=== PATIENT | female | born 1940 | race Caucasian/White ===

== ENCOUNTER 2021-07-30 07:27 | Outpatient (REF) | payer SELFPAY ==
[2021-07-30 09:24] LABS: Abs Immature Grans 0.02 10^3/uL (0.0-0.06); Absolute Basophil Count 0.04 10^3/uL (0.0-0.2); Absolute Eosinophil Count 0.13 10^3/uL (0.0-0.7); Absolute Lymphocyte Count 1.57 10^3/uL (1.2-3.4); Absolute Monocyte Count 0.65 10^3/uL (0.1-0.8); Absolute Neutrophil Count 3.53 10^3/uL (1.2-6.7); Basophils % 0.7; Eosinophils % 2.2; HCT 34.6 % (36.0-46.0); HGB 11.1 g/dL (11.2-15.7); Immature Grans % 0.3; Lymphocytes % 26.4; MCH 34.5 pg (27.0-33.0); MCHC 32.1 % (32.0-36.0); MCV 107.5 fL (80-95); MPV 8.7 fL (8.0-11.0); Monocytes % 10.9; Neutrophils % 59.5; Nucleated RBC 0 %; RBC 3.22 10^6/uL (3.93-5.22); RDW 14.6 % (11.7-14.6); RDW-SD 57.1 fL; WBC 5.94 10^3/uL (4.4-10.8)
[2021-07-30 09:25] LABS: Anion Gap 2.1 mmol/L (3-11); BUN 24 mg/dL (7-18); CO2 32.9 mmol/L (21.0-32.0); CREATININE 0.4 mg/dL (0.55-1.02); Calcium 8.1 mg/dL (8.5-10.1); Chloride 105 mmol/L (98-107); Glucose 70 mg/dL (74-106); Potassium 4.9 mmol/L (3.5-5.1); Sodium 140 mmol/L (136-145)
[2021-07-30 09:36] LABS: Diff Comment Diff Reviewed; Macrocytosis 2+; Platelet Count 378 10^3/uL (130-400); Polychromasia Present
[2021-07-30 22:44] LABS: Folate 14.1 ng/mL (8.6-20.0); Vitamin B12 1042 pg/mL (193-986)
== END 2021-07-30 07:28 | disposition home or self-care (01) ==
LOC: LBN 07:27
PROVIDERS: Visit Provider Family Medicine
DX: E87.1 Hypo-osmolality and hyponatremia (principal); N39.0 Urinary tract infection, site not specified; A79.82 Anaplasmosis [A. phagocytophilum]
CPT/HCPCS: 80048; 82607; 82746; 85025

== ENCOUNTER 2021-08-06 11:13 | Outpatient (REF) | payer SELFPAY ==
[2021-08-06 18:39] LABS: Anion Gap 4.8 mmol/L (3-11); BUN 19 mg/dL (7-18); CO2 32.2 mmol/L (21.0-32.0); CREATININE 0.5 mg/dL (0.55-1.02); Calcium 8.4 mg/dL (8.5-10.1); Chloride 105 mmol/L (98-107); Glucose 147 mg/dL (74-106); Potassium 4.2 mmol/L (3.5-5.1); Sodium 142 mmol/L (136-145)
== END 2021-08-06 11:14 | disposition home or self-care (01) ==
LOC: LBN 11:13
PROVIDERS: Visit Provider Family Medicine
DX: E87.1 Hypo-osmolality and hyponatremia (principal)
CPT/HCPCS: 80048

== ENCOUNTER 2021-08-08 17:29 | Outpatient (REF) | payer SELFPAY ==
[2021-08-08 14:59] LABS: Bilirubin Negative (Negative); Blood Negative (Negative); Clarity Sl Cloudy (Clear); Glucose Negative (Negative); Ketones Negative (Negative); Leukocyte Esterase Negative (Negative); Nitrite Positive (Negative); Specific Gravity 1.025 (1.005-1.025); Urobilinogen 0.2 EU/dL (Up TO 0.2)
[2021-08-08 15:19] LABS: Bacteria Packed HPF (Negative); C & S Indicated? C&S Done As Ordered; Crystals Negative HPF (Negative); Epithelial Cells Few HPF (Negative); Mucus Negative (Negative); RBC Negative HPF (0-2)
== END 2021-08-08 17:30 | disposition home or self-care (01) ==
LOC: LBN 17:29
PROVIDERS: Visit Provider Family Medicine
DX: R41.82 Altered mental status, unspecified (principal)
CPT/HCPCS: 87077; 81003; 81015; 87086; 87186

== ENCOUNTER 2021-08-13 19:43 | Outpatient (REF) | payer SELFPAY ==
[2021-08-13 18:41] LABS: Anion Gap 9.6 mmol/L (3-11); BUN 25 mg/dL (7-18); CO2 28.4 mmol/L (21.0-32.0); CREATININE 0.5 mg/dL (0.55-1.02); Calcium 8.3 mg/dL (8.5-10.1); Chloride 107 mmol/L (98-107); Folate 18.3 ng/mL (8.6-20.0); Glucose 175 mg/dL (74-106); Sodium 145 mmol/L (136-145); Vitamin B12 588 pg/mL (193-986)
== END 2021-08-13 19:44 | disposition home or self-care (01) ==
LOC: LBN 19:43
PROVIDERS: Visit Provider Family Medicine
DX: E87.1 Hypo-osmolality and hyponatremia (principal)
CPT/HCPCS: 80048; 82607; 82746

== ENCOUNTER 2021-08-16 14:21 | Outpatient (REF) | payer SELFPAY ==
[2021-08-16 19:27] LABS: ESR 11 mm/hr (0-30)
[2021-08-16 19:28] LABS: ALT 40 U/L (14-59); AST 23 U/L (15-37); Albumin 2.9 g/dL (3.4-5.0); Alkaline Phosphatase 104 U/L (46-116); Anion Gap 6.3 mmol/L (3-11); BUN 22 mg/dL (7-18); Bilirubin, Total 0.3 mg/dL (0.2-1.0); CO2 30.7 mmol/L (21.0-32.0); CREATININE 0.4 mg/dL (0.55-1.02); Calcium 8.4 mg/dL (8.5-10.1); Chloride 109 mmol/L (98-107); Glucose 111 mg/dL (74-106); Potassium 4.1 mmol/L (3.5-5.1); Sodium 146 mmol/L (136-145); Total Protein 5.8 g/dL (6.4-8.2)
[2021-08-16 19:29] LABS: Bilirubin Negative (Negative); Blood Negative (Negative); Clarity Clear (Clear); Glucose Negative (Negative); Ketones Negative (Negative); Leukocyte Esterase Negative (Negative); Nitrite Negative (Negative); Specific Gravity >= 1.030 (1.005-1.025); Urobilinogen 0.2 EU/dL (Up TO 0.2)
[2021-08-16 19:33] LABS: C-Reactive Protein < 0.05 mg/dL (0.0-0.3)
[2021-08-19 10:56] LABS: Lyme Ab w Rflx to Lyme Confirm Negative (Negative)
[2021-08-19 11:00] LABS: Syphilis Serology (RPR) Negative (Negative)
== END 2021-08-16 14:22 | disposition home or self-care (01) ==
LOC: LBN 14:21
PROVIDERS: Visit Provider Family Medicine
DX: R41.82 Altered mental status, unspecified (principal); R82.998 Other abnormal findings in urine; E87.1 Hypo-osmolality and hyponatremia
CPT/HCPCS: 80053; 85652; 81003; 86140; 86592; 86618

== ENCOUNTER 2021-08-22 13:23 | Outpatient (REF) | payer SELFPAY ==
[2021-08-22 15:16] LABS: Anion Gap 4.9 mmol/L (3-11); BUN 21 mg/dL (7-18); CO2 31.1 mmol/L (21.0-32.0); CREATININE 0.4 mg/dL (0.55-1.02); Calcium 8.4 mg/dL (8.5-10.1); Chloride 104 mmol/L (98-107); Folate 18.4 ng/mL (8.6-20.0); Glucose 79 mg/dL (74-106); Potassium 4.8 mmol/L (3.5-5.1); Sodium 140 mmol/L (136-145)
[2021-08-22 16:04] LABS: Vitamin B12 592 pg/mL (193-986)
== END 2021-08-22 13:24 | disposition home or self-care (01) ==
LOC: LBN 13:23
PROVIDERS: Visit Provider Family Medicine
DX: E87.1 Hypo-osmolality and hyponatremia (principal)
CPT/HCPCS: 80048; 82607; 82746

== ENCOUNTER 2021-08-27 12:18 | Outpatient (REF) | payer SELFPAY ==
--- OUTSIDE RECORDS SUMMARY | 2021-08-27 12:26 | XMS_ITS ---
:1940 Author Care Team Providers Name Role Phone DR. ROE HADDAD Primary Care Provider [phone] DR. ROE HADDAD Referring Provider [phone] ROE HADDAD MD Primary Care Provider [phone] Allergies Code Code System Name Reaction Severity Status Onset 538717 RxNorm Demerol ? ? Active ? 784906 RxNorm Fosamax ? ? Active ? 347438 RxNorm Miacalcin ? ? Active ? 7052 RxNorm Morphine ? ? Active ? 7984 RxNorm Penicillin v ? ? Active ? 9142 RxNorm Ranitidine ? ? Active ? 20240308 RxNorm Valium ? ? Active ? Medications Name Status Start Date Stop Date ? ? albuterol sulfate HFA 90 mcg/actuation aerosol inhaler Active ? Not available Inhale 2 puffs every 4 hours by inhalation route as needed. aspirin 81 mg tablet Active ? Not availab le Take 1 tablet every day by oral route. Coumadin 2 mg tablet Active ? Not availab le Take 2 tablets every day by oral route. glycerin (adult) rectal suppository Active ? Not available Insert 1 suppository by rectal route as needed. mirabegron ER 50 mg tablet,extended release 24 hr Active ? Not available Take 1 tablet every day by oral route. senna-docusate sodium 8.6 mg-50 mg tablet Active ? Not available Take 3 tablets as needed by oral route in the evening. Vitamin B-12 1,000 mcg tablet Active ? N ot available Take 1 tablet every day by oral route. Vitamin C 1,000 mg chewable tablet Active ? Not available Take 1 tablet twice a day by oral route. Problems Name Status Onset Date Source ? Disorder of Vitamin B12 Active 04/11/2021 ? Anxiety Active 04/11/2021 ? Tobacco User Active 04/11/2021 ? Chronic Pain Active 04/11/2021 ? Neuropathy Active 04/11/2021 ? Gastroesophageal Reflux Disease Active 04/11/2021 ? Constipation Active 04/11/2021 ? Urinary Tract Infectious Disease Active 04/11/2021 ? Osteoarthritis Active 04/11/2021 ? Neck Pain Active 04/11/2021 ? Osteopenia Active 04/11/2021 ? Macrocytosis Active 04/11/2021 ? Onychomycosis of Toenails Active 04/17/2021 ? Ingrowing Toenail Active 04/17/2021 ? Dystrophia Unguium Active 04/17/2021 ? Abnormal Gait Due to Impairment of Balance Active 04/17 ? Pain of Toe of Right Foot Active 04/17/2021 ? Pain of Toe of Left Foot Active 04/17/2021 ? Bilateral Atherosclerosis of Arteries of Active 021 ? Lower Limbs Procedures None recorded. Results Lab Results None recorded. Past Encounters 04/17/2021 Onychomycosis of Toenails; Dystrophia Un guium; Ingrowing Toenail; Bilateral Atherosclerosis of Arteries of Lower Limbs; Pain of Toe of Left Foot; Pain of Toe of Right Foot; Abnormal Gait Due to Impairment of Balance Jordan Ross, DPM: [address] [place] [address], Ph. Social History None recorded. Vaccine List None recorded. Plan of Care Reminders Provider Appointments None ? ? recorded. Lab None ? ? recorded. Referral None ? ? recorded. Procedures None ? ? recorded. Surgeries None ? ? recorded. Imaging None ? ? recorded. Vitals None recorded.
[2021-08-27 16:14] LABS: Anion Gap 2.9 mmol/L (3-11); BUN 23 mg/dL (7-18); CO2 33.1 mmol/L (21.0-32.0); CREATININE 0.5 mg/dL (0.55-1.02); Calcium 8.9 mg/dL (8.5-10.1); Chloride 105 mmol/L (98-107); Glucose 131 mg/dL (74-106); Potassium 5.3 mmol/L (3.5-5.1); Sodium 141 mmol/L (136-145)
== END 2021-08-27 12:19 | disposition home or self-care (01) ==
LOC: LBN 12:18
PROVIDERS: Visit Provider Family Medicine
DX: E87.1 Hypo-osmolality and hyponatremia (principal)
CPT/HCPCS: 80048

== ENCOUNTER 2021-09-03 16:17 | Outpatient (REF) | payer SELFPAY ==
[2021-09-03 17:44] LABS: Anion Gap 6.1 mmol/L (3-11); BUN 23 mg/dL (7-18); CO2 30.9 mmol/L (21.0-32.0); CREATININE 0.4 mg/dL (0.55-1.02); Calcium 8.7 mg/dL (8.5-10.1); Chloride 103 mmol/L (98-107); Glucose 110 mg/dL (74-106); Potassium 4.8 mmol/L (3.5-5.1); Sodium 140 mmol/L (136-145)
== END 2021-09-03 16:18 | disposition home or self-care (01) ==
LOC: LBN 16:17
PROVIDERS: Visit Provider Family Medicine
DX: E87.0 Hyperosmolality and hypernatremia (principal)
CPT/HCPCS: 80048

== ENCOUNTER 2021-09-10 17:28 | Outpatient (REF) | payer MEDICARE, OTHER, SELFPAY ==
[2021-09-10 20:15] LABS: Anion Gap 6.1 mmol/L (3-11); BUN 26 mg/dL (7-18); CO2 30.9 mmol/L (21.0-32.0); CREATININE 0.4 mg/dL (0.55-1.02); Calcium 8.7 mg/dL (8.5-10.1); Chloride 107 mmol/L (98-107); Glucose 84 mg/dL (74-106); Potassium 4.7 mmol/L (3.5-5.1); Sodium 144 mmol/L (136-145); Vitamin B12 442 pg/mL (193-986)
[2021-09-10 20:16] LABS: Folate > 20.0 ng/mL (8.6-20.0)
== END 2021-09-10 17:29 | disposition home or self-care (01) ==
LOC: LBN 17:28
PROVIDERS: Visit Provider Family Medicine
DX: J90 Pleural effusion, not elsewhere classified (principal); I82.593 Chronic embolism and thrombosis of other specified deep vein of lower extremity, bilateral
CPT/HCPCS: 80048; 82607; 82746

== ENCOUNTER 2021-09-17 15:50 | Outpatient (REF) | payer MEDICARE, OTHER, SELFPAY ==
[2021-09-17 17:05] LABS: Anion Gap 6.5 mmol/L (3-11); BUN 23 mg/dL (7-18); CO2 30.5 mmol/L (21.0-32.0); CREATININE 0.5 mg/dL (0.55-1.02); Calcium 8.5 mg/dL (8.5-10.1); Chloride 101 mmol/L (98-107); Glucose 129 mg/dL (74-106); Potassium 4.5 mmol/L (3.5-5.1); Sodium 138 mmol/L (136-145)
== END 2021-09-17 15:51 | disposition home or self-care (01) ==
LOC: LBN 15:50
PROVIDERS: Visit Provider Family Medicine
DX: E87.1 Hypo-osmolality and hyponatremia (principal)
CPT/HCPCS: 80048

== ENCOUNTER 2021-10-03 22:16 | Outpatient (REF) | payer MEDICARE, OTHER, SELFPAY ==
[2021-10-03 22:26] LABS: Abs Immature Grans 0.02 10^3/uL (0.0-0.06); Absolute Basophil Count 0.03 10^3/uL (0.0-0.2); Absolute Eosinophil Count 0.18 10^3/uL (0.0-0.7); Absolute Lymphocyte Count 1.73 10^3/uL (1.2-3.4); Absolute Monocyte Count 0.62 10^3/uL (0.1-0.8); Absolute Neutrophil Count 3.82 10^3/uL (1.2-6.7); Basophils % 0.5; Eosinophils % 2.8; HCT 40.5 % (36.0-46.0); HGB 12.8 g/dL (11.2-15.7); Immature Grans % 0.3; MCHC 31.6 % (32.0-36.0); MCV 107.4 fL (80-95); MPV 8.9 fL (8.0-11.0); Monocytes % 9.7; Neutrophils % 59.7; Nucleated RBC 0 %; Platelet Count 259 10^3/uL (130-400); RBC 3.77 10^6/uL (3.93-5.22); RDW 13.6 % (11.7-14.6); RDW-SD 54.8 fL
[2021-10-03 22:37] LABS: Anion Gap 5.6 mmol/L (3-11); BUN 32 mg/dL (7-18); CO2 31.4 mmol/L (21.0-32.0); CREATININE 0.4 mg/dL (0.55-1.02); Calcium 8.6 mg/dL (8.5-10.1); Chloride 105 mmol/L (98-107); Glucose 102 mg/dL (74-106); Potassium 4.3 mmol/L (3.5-5.1); Sodium 142 mmol/L (136-145)
[2021-10-03 22:38] LABS: Diff Comment RBC Morph Reviewed; Macrocytosis 3+
== END 2021-10-03 22:17 | disposition home or self-care (01) ==
LOC: LBN 22:16
PROVIDERS: Visit Provider Family Medicine
DX: E87.1 Hypo-osmolality and hyponatremia (principal); I82.593 Chronic embolism and thrombosis of other specified deep vein of lower extremity, bilateral
CPT/HCPCS: 80048; 85025

== ENCOUNTER 2021-10-07 18:08 | Outpatient (REF) | payer MEDICARE, OTHER, SELFPAY ==
[2021-10-07 19:37] LABS: Bilirubin Negative (Negative); Blood Negative (Negative); Clarity Clear (Clear); Glucose Negative (Negative); Ketones Negative (Negative); Leukocyte Esterase Negative (Negative); Nitrite Positive (Negative); Specific Gravity >= 1.030 (1.005-1.025); Urobilinogen 0.2 EU/dL (Up TO 0.2)
[2021-10-07 19:50] LABS: C & S Indicated? C&S Done As Ordered
[2021-10-07 19:54] LABS: Bacteria Many HPF (Negative); Casts Negative LPF (Negative); Crystals Negative HPF (Negative); Epithelial Cells Negative HPF (Negative); Mucus Negative (Negative); Other Cells Negative (Negative); RBC Negative HPF (0-2)
== END 2021-10-07 18:09 | disposition home or self-care (01) ==
LOC: LBN 18:08
PROVIDERS: Visit Provider Family Medicine
DX: N39.0 Urinary tract infection, site not specified (principal)
CPT/HCPCS: 81003; 81015; 87086

== ENCOUNTER 2021-10-08 17:13 | Outpatient (REF) | payer MEDICARE, OTHER, SELFPAY ==
[2021-10-08 18:29] LABS: Anion Gap 7.3 mmol/L (3-11); BUN 28 mg/dL (7-18); CO2 29.7 mmol/L (21.0-32.0); CREATININE 0.5 mg/dL (0.55-1.02); Calcium 8.9 mg/dL (8.5-10.1); Chloride 104 mmol/L (98-107); Folate 19.1 ng/mL (8.6-20.0); Glucose 133 mg/dL (74-106); Potassium 4.5 mmol/L (3.5-5.1); Sodium 141 mmol/L (136-145); Vitamin B12 477 pg/mL (193-986)
== END 2021-10-08 17:14 | disposition home or self-care (01) ==
LOC: LBN 17:13
PROVIDERS: Visit Provider Nurse Practitioner Family
DX: E87.8 Other disorders of electrolyte and fluid balance, not elsewhere classified (principal)
CPT/HCPCS: 80048; 82607; 82746

== ENCOUNTER 2021-10-18 14:02 | Outpatient (REF) | payer MEDICARE, OTHER, SELFPAY ==
[2021-10-18 13:55] LABS: Abs Immature Grans 0.05 10^3/uL (0.0-0.06); Absolute Basophil Count 0.07 10^3/uL (0.0-0.2); Absolute Lymphocyte Count 1.63 10^3/uL (1.2-3.4); Absolute Monocyte Count 0.78 10^3/uL (0.1-0.8); Absolute Neutrophil Count 6.35 10^3/uL (1.2-6.7); Basophils % 0.8; Eosinophils % 1.1; HCT 42.8 % (36.0-46.0); HGB 13.6 g/dL (11.2-15.7); Immature Grans % 0.6; Lymphocytes % 18.2; MCH 33.8 pg (27.0-33.0); MCHC 31.8 % (32.0-36.0); MCV 106.5 fL (80-95); MPV 9.1 fL (8.0-11.0); Monocytes % 8.7; Neutrophils % 70.6; Nucleated RBC 0 %; Platelet Count 357 10^3/uL (130-400); RBC 4.02 10^6/uL (3.93-5.22); RDW-SD 51.7 fL; WBC 8.98 10^3/uL (4.4-10.8)
[2021-10-18 14:06] LABS: ALT 29 U/L (14-59); AST 19 U/L (15-37); Albumin 3.5 g/dL (3.4-5.0); Alkaline Phosphatase 90 U/L (46-116); BUN 24 mg/dL (7-18); Bilirubin, Total 0.3 mg/dL (0.2-1.0); CREATININE 0.4 mg/dL (0.55-1.02); Calcium 9.3 mg/dL (8.5-10.1); Chloride 103 mmol/L (98-107); Glucose 81 mg/dL (74-106); Potassium 4.9 mmol/L (3.5-5.1); Sodium 138 mmol/L (136-145); Total Protein 6.7 g/dL (6.4-8.2)
[2021-10-18 14:39] LABS: INR 1.6 (0.9-1.1); Prothrombin Time 16.2 sec (9.3-11.0)
== END 2021-10-18 14:03 | disposition home or self-care (01) ==
LOC: LBN 14:02
PROVIDERS: Visit Provider Nurse Practitioner Family
DX: E87.1 Hypo-osmolality and hyponatremia (principal); I48.91 Unspecified atrial fibrillation
CPT/HCPCS: 80053; 85025; 85610

== ENCOUNTER 2021-10-20 10:21 | Outpatient (REF) | payer MEDICARE, OTHER, SELFPAY ==
[2021-10-20 11:36] LABS: Prothrombin Time 21.2 sec (9.3-11.0)
[2021-10-20 11:39] LABS: INR 2.1 (0.9-1.1)
== END 2021-10-20 10:22 | disposition home or self-care (01) ==
LOC: LBN 10:21
PROVIDERS: Visit Provider Nurse Practitioner Family
DX: I82.593 Chronic embolism and thrombosis of other specified deep vein of lower extremity, bilateral (principal); E87.1 Hypo-osmolality and hyponatremia; R82.90 Unspecified abnormal findings in urine
CPT/HCPCS: 85610; 87086

== ENCOUNTER 2021-10-20 17:31 | Outpatient (REF) | payer MEDICARE, OTHER, SELFPAY | END 2021-10-20 17:32 | disposition home or self-care (01) | LOC: LBN 17:31 | PROVIDERS: Visit Provider Family Medicine ==

== ENCOUNTER 2021-10-22 10:57 | Outpatient (REF) | payer MEDICARE, OTHER, SELFPAY ==
[2021-10-22 11:38] LABS: INR 2.3 (0.9-1.1); Prothrombin Time 22.5 sec (9.3-11.0)
== END 2021-10-22 10:58 | disposition home or self-care (01) ==
LOC: LBN 10:57
PROVIDERS: Visit Provider Nurse Practitioner Family
DX: I48.91 Unspecified atrial fibrillation (principal)
CPT/HCPCS: 85610

== ENCOUNTER 2021-10-24 13:51 | Outpatient (REF) | payer MEDICARE, OTHER, SELFPAY ==
[2021-10-24 15:02] LABS: Prothrombin Time 29.1 sec (9.3-11.0)
== END 2021-10-24 13:52 | disposition home or self-care (01) ==
LOC: LBN 13:51
PROVIDERS: Visit Provider Nurse Practitioner Family
DX: I82.593 Chronic embolism and thrombosis of other specified deep vein of lower extremity, bilateral (principal)
CPT/HCPCS: 85610

== ENCOUNTER 2021-10-27 16:35 | Outpatient (REF) | payer MEDICARE, OTHER, SELFPAY ==
[2021-10-27 16:58] LABS: INR 2.7 (0.9-1.1); Prothrombin Time 26.4 sec (9.3-11.0)
== END 2021-10-27 16:36 | disposition home or self-care (01) ==
LOC: LBN 16:35
PROVIDERS: Visit Provider Nurse Practitioner Family
DX: I82.593 Chronic embolism and thrombosis of other specified deep vein of lower extremity, bilateral (principal)
CPT/HCPCS: 85610

== ENCOUNTER 2021-10-31 18:16 | Outpatient (REF) | payer MEDICARE, OTHER, SELFPAY ==
[2021-10-31 12:23] LABS: INR 1.1 (0.9-1.1); Prothrombin Time 11.5 sec (9.3-11.0)
[2021-10-31 12:29] LABS: Anion Gap 5.5 mmol/L (3-11); BUN 20 mg/dL (7-18); CO2 30.5 mmol/L (21.0-32.0); CREATININE 0.5 mg/dL (0.55-1.02); Chloride 104 mmol/L (98-107); Glucose 108 mg/dL (74-106); Potassium 4.3 mmol/L (3.5-5.1); Sodium 140 mmol/L (136-145)
== END 2021-10-31 18:17 | disposition home or self-care (01) ==
LOC: LBN 18:16
PROVIDERS: Visit Provider Nurse Practitioner Family
DX: I82.593 Chronic embolism and thrombosis of other specified deep vein of lower extremity, bilateral (principal)
CPT/HCPCS: 80048; 85610

== ENCOUNTER 2021-11-07 12:48 | Outpatient (REF) | payer MEDICARE, OTHER, SELFPAY ==
[2021-11-07 14:40] LABS: Anion Gap 5.3 mmol/L (3-11); BUN 21 mg/dL (7-18); CO2 30.7 mmol/L (21.0-32.0); CREATININE 0.5 mg/dL (0.55-1.02); Calcium 8.4 mg/dL (8.5-10.1); Chloride 106 mmol/L (98-107); Glucose 98 mg/dL (74-106); Potassium 3.8 mmol/L (3.5-5.1); Sodium 142 mmol/L (136-145); Vitamin B12 585 pg/mL (193-986)
[2021-11-07 14:41] LABS: Folate > 20.0 ng/mL (8.6-20.0)
== END 2021-11-07 12:49 | disposition home or self-care (01) ==
LOC: LBN 12:48
PROVIDERS: Visit Provider Nurse Practitioner Family
DX: E87.1 Hypo-osmolality and hyponatremia (principal); R53.1 Weakness; F03.91 Unspecified dementia, unspecified severity, with behavioral disturbance
CPT/HCPCS: 80048; 82607; 82746

== ENCOUNTER 2021-11-21 18:13 | Outpatient (REF) | payer MEDICARE, OTHER, SELFPAY ==
[2021-11-21 12:52] LABS: HCT 41.5 % (36.0-46.0); HGB 12.8 g/dL (11.2-15.7); MCH 32.8 pg (27.0-33.0); MCHC 30.8 % (32.0-36.0); MCV 106.4 fL (80-95); MPV 8.6 fL (8.0-11.0); Platelet Count 386 10^3/uL (130-400); RDW 13.1 % (11.7-14.6); RDW-SD 51.2 fL
[2021-11-21 12:58] LABS: Bilirubin Negative (Negative); Blood Negative (Negative); Clarity Cloudy (Clear); Glucose Negative (Negative); Ketones Negative (Negative); Leukocyte Esterase Negative (Negative); Nitrite Negative (Negative); Specific Gravity 1.025 (1.005-1.025); Urobilinogen 0.2 EU/dL (Up TO 0.2)
[2021-11-21 13:09] LABS: Bacteria Negative HPF (Negative); Epithelial Cells Few HPF (Negative); RBC 0-2 HPF (0-2); WBC 0-2 HPF (0-5)
[2021-11-21 13:10] LABS: C & S Indicated? No; Casts Negative LPF (Negative); Crystals Few Triple Phos HPF (Negative); Mucus Moderate (Negative)
[2021-11-21 13:23] LABS: Anion Gap 4.2 mmol/L (3-11); BUN 24 mg/dL (7-18); CO2 34.8 mmol/L (21.0-32.0); CREATININE 0.4 mg/dL (0.55-1.02); Calcium 8.8 mg/dL (8.5-10.1); Chloride 112 mmol/L (98-107); Glucose 104 mg/dL (74-106); Potassium 3.3 mmol/L (3.5-5.1); Sodium 151 mmol/L (136-145)
== END 2021-11-21 18:14 | disposition home or self-care (01) ==
LOC: LBN 18:13
PROVIDERS: Visit Provider Nurse Practitioner Family
DX: E87.1 Hypo-osmolality and hyponatremia (principal); F06.0 Psychotic disorder with hallucinations due to known physiological condition; N31.9 Neuromuscular dysfunction of bladder, unspecified
CPT/HCPCS: 80048; 85027; 81003; 81015

== ENCOUNTER 2021-11-24 10:24 | Emergency (ER) | payer MEDICARE, OTHER, SELFPAY ==
[2021-11-24] VITALS (36 sets, daily range): BP systolic 107–143; BP diastolic 52–86; PULSE 64–104; RESP 14–44; TEMP 36.5–37.6; O2SAT 84–95
--- NOTE | 2021-11-24 10:30 | DI.RAD_ITS ---
Exam(s) XR CHEST 1V IN DI DEPT EXAM: XR CHEST 1V IN DI DEPT CLINICAL HISTORY: ams. TECHNIQUE: 2D digital imaging was performed. COMPARISON: No exams were available for comparison FINDINGS: Single AP portable view. Scoliosis noted. Cardiomegaly. Platelike atelectasis in the right lung. There appears to be probab le bronchiectasis in left lower lobe is some infiltrate in left lower lobe evident. No obvious pleur al effusions. No pulmonary edema. IMPRESSION: Hip spaces for left lower lobe infiltrate possible bronchiectasis. No obvious pleural effusions. Cardiomegaly. No pulmonary edema. DATA REPOSITORY: RADIATION DOSE DELIVERED: All CT scans at this facility use at least one of these dose optimization techniques: automated exposure control; mA and/or kV adjustment per patient size (includes targeted e xams where dose is matched to clinical indication); or iterative reconstruction.
--- NOTE | 2021-11-24 10:30 | DI.CT_ITS ---
Exam(s) CT HEAD WO EXAM: CT HEAD WO CLINICAL HISTORY: ams. TECHNIQUE: Imaging Protocol: Axial computed tomography images with coronal and sagittal reformatted images were created and reviewed COMPARISON: No exams were available for comparison FINDINGS: There are no skull fractures nor fluid in the visualized paranasal sinuses. There is no evidence of intracranial hemorrhage, mass effect, or shift of midline structures. There are no extra-axial fluid collections. The ventricles are not enlarged or shifted and there is no blo od within the ventricular system nor within the basal cisterns. There is symmetrical involutional change consistent with patient's advanced age. There is some mild bilateral periventricular hypodensity consistent with chronic small vessel ischemic changes. IMPRESSION: No acute intracranial findings on this noninfused CT scan of the brain. Chronic white matter ischemic changes. No obvious acute territorial infarction and no evidence of in tracranial hemorrhage, intra nor extra-axial. RADIATION DOSE DELIVERED: 1,496.84mGy.cm Total DLP DATA REPOSITORY: All CT scans at this facility are submitted to the National Radiology Data Registry (NRDR) Dose Index Registry (DIR) with the [employer] (A[employer]). RADIATION OPTIMIZATION: All CT scans at this facility use at least one of these dose optimization te chniques: automated exposure control; mA and/or kV adjustment per patient size (includes targeted exa ms where dose is matched to clinical indication); or iterative reconstruction.
--- NOTE | 2021-11-24 10:49 | ED.GENADUL_ITS ---
Discharge Plan Disposition Patient Disposition: SNF (LEVEL 1) [facility] Condition: Stable Discharge Details Clinical Impression: Hypernatremia, Agitation Primary Care Provider: [facility] ED Provider: Swapnil Dhillon Home Meds and New Rx's Prescriptions: Continued sennosides [senna] 8.6 mg Tablet 17 mg PO DAILY 0RF melatonin 3 mg Tablet 3 mg PO HS 0RF lorazepam [Ativan] 0.5 mg Tablet 0.5 mg PO Q4H 0RF ascorbic acid (vitamin C) 250 mg Tablet 1,000 mg PO BID 0RF lorazepam [Ativan] 1 mg Tablet 1 mg PO DAILY 0RF nicotine 7 mg/24 hr Patch 24 Hour 1 patch transdermal DAILY 0RF cholecalciferol (vitamin D3) 25 mcg (1,000 unit) Tablet 50 mcg PO DAILY 0RF mirabegron 50 mg Tablet Extended Release 24 Hr 50 mg PO DAILY 0RF Eliquis 2.5 mg Tablet 2.5 mg PO BID 0RF potassium chloride 20 mEq Tablet Extended Release 20 meq PO DAILY 0RF sodium chloride 1,000 mg Tablet,Soluble 1,000 mg PO BID 0RF Discharge Instructions Instructions: Hypernatremia (ED) Additional Instructions: Laboratory values do not reveal any obvious emergent process. Sodium was 150, she was given the fluid bolus of [address] was unremarkable. I spoke both with NUT SHELLER Andrea from her rehab facility and the patient's daughter Barbie on the phone regarding her evaluation here in the ER and plan to be discharged back to her facility. It sounds as though the facility will be changing some medications and continuing the work-up for her ongoing deterioration. Please watch for new or worsening symptoms and return to the ER for any concerns. Medical Decision Making 81-year-old female with a complicated past medical history who was living independently up until July when she had a fall, subsequently treated at [facility] for anaplasmosis, UTI, and hyponatremia. She then was transferred to [facility] and rehab where there has been a steady decline. Patient noted to have an elevated sodium of 151 three days ago, has had increasing agitated and aggressive behavior towards staff, and this morning was walking around the facility with little to no clothes on. I was able to speak with the patient's daughter, Barbie, who is aware of the patient's visit to the ER today. She reports that the patient is a DNR, DNI and although would like a evaluation and work-up completed, no drastic measures. Plan is to obtain IV access and obtain laboratory screening values as well as a head CT and chest x- ray. It was initially difficult to obtain vital signs as the patient was a gitated and yelling leave me alone, I want to go home. She was slightly combative with staff. I do believe some of her readings of tachypnea are falsely elevated and inaccurate based upon motion artifact. Her O2 sat was 91% when obtaining a good O2 pleth and I was witnessing her breathing at 20 respirations per minute. I was able to speak with her daughter who stated that her O2 sat seems to dip into the 80s when she becomes agitated or breathes in a shallow manner. Otherwise it typically sits in the high 80s to low 90s when at rest. Patient is not willing to wear O2. Initial laboratory values reveal no evidence of leukocytosis. Her hemoglobin and hematocrit are 15.9 and 52.0. Platelet count 363. INR 1.1. Sodium is 150, this is down 1 when compared to 3 days ago. Potassium minimally elevated at 5.2. Creatinine 0.4 with a GFR greater than 60. Glucose 122, LFTs unremarkable. TSH 0.24 with a free T4 of 1.25. Urine reveals positive nitrates, trace leuk esterase, 1 revealing previous urinalysis she has been nitrate positive. Red blood cells of 0-2, white blood cells of 3-5, many bacteria, culture indicated Based upon her laboratory values, I do believe that she will benefit from a bolus of 500 cc normal saline. Chest x-ray and head both unremarkable for emergent process per radiology It should be noted that the patient was initially uncooperative for catheter or CT imaging, required 1 mg IV Ativan. At this time her O2 sat is were 86% and she was placed on 2 L nasal cannula but I was able to wean this down to 1 L and her O2 sat remains 91% while she was sleeping I contacted the provider telephony engineer, KELVIN Mendez for the rehab facility at [phone]. She states that since the patient has been at her facility there has been no endocrine follow-up given the outbreak of Covid at their facility. She does question if the patient could likely be taken off of the fluid restrictions. She states that the patient began having behavioral changes and after giving risperidone for a trial, her overall cognition certainly went downhill. She became more agitated, aggressive towards staff. Decrease p.o. intake, concern for dehydration. We discussed her work-up here in the ER today and she feels as though at this time the patient can be safely transferred back to her facility, she will continue monitoring the hypernatremia, risperidone, and likely add on Ativan. Will await urine culture to determine if treatment is necessary. Will contact her medical registrar as well as talk with the family about realistic expectations and goals and perhaps involve palliative care. I once again spoke with the patient's daughter Barbie. She is aware of the work-up here in the ER and that she will be transferred back to the [facility] rehab facility. She plans on reaching out to Carolyn herself to discuss the ongoing care plan for her mother. We discussed her work-up in length as well as the O2 sat, she states that this is very common for her and it is worse when she is agitated her breathing shallowly, acknowledges that she will not wear oxygen. Upon discharge, her respiration rate was noted to be 38 however I was personally in the room and her rate was 20, I do believe this is secondary to motion artifact. O2 sat with a good pleth was 90%. This documentation was generated using inContact dictation system, please disregard any oddities of phrase or misspellings. Medical Records Medical records reviewed: Yes I reviewed the patient's medical records. Medical records narrative: From [facility] Imaging Data Radiologic Study: Attestation: I personally reviewed and interpreted this imaging study as follows: Imaging: X-Ray Radiologist's impression: PROCEDURE INFORMATION: Exam: XR Chest Exam date and time: 11/24/2021 12:21 PM Age: 81 years old Clinical indication: Other: AMS; Additional info: Patient unable to follow directions or remain still TECHNIQUE: Imaging protocol: XR of the chest. Views: 1 view. COMPARISON: No relevant images were readily available for comparison purposes. FINDINGS: Lungs: Linear like opacity right lung base likely atelectasis. No convincing consolidation. Pleural spaces: No pneumothorax. No sizable pleural effusion. Heart/Mediastinum: The cardiac silhouette appears enlarged. Suspected hiatal hernia. Bones/joints: Osteopenia. No acute displaced fracture. Other findings: Patient rotation limits evaluation. IMPRESSION: Cardiac silhouette enlargement and likely right basilar atelectasis without other definite acute cardiopulmonary findings on this exam limited by patient rotation. Radiologic Study #2: Attestation: I personally reviewed and interpreted this imaging study as follows: Imaging: CT Scan Radiologist's impression: PROCEDURE INFORMATION: Exam: CT Head Without Contrast Exam date and time: 11/24/2021 12:21 PM Age: 81 years old Clinical indication: Alteration of consciousness; Other: AMS; Additional info: Patient unable to follow directions or remain still TECHNIQUE: Imaging protocol: Computed tomography of the head without contrast. COMPARISON: No relevant images were readily available for comparison purposes. FINDINGS: Brain: Moderate cerebral volume loss. Moderate burden nonspecific white matter disease likely related to chronic microvascular risk factors. No convincing evidence of an acute infarct. No acute intracranial hemorrhage. Cerebral ventricles: Ventricular expansion likely related to cerebral volume loss. Paranasal sinuses: Clear Mastoid air cells: There is near complete opacification of the right mastoid air cells as well as fluid within the right middle ear. Left mastoid air cells clear. Orbital cavities: Bilateral lens extractions. Vasculature: Vascular calcifications. Bones/joints: No acute skull fracture. Soft tissues: Unremarkable superficial soft tissues IMPRESSION: 1. No acute intracranial findings. 2. Near complete opacification of the right mastoid air cells and fluid within the right middle ear concerning for infectiou s process. Please correlate for infectious signs/symptoms. Lab Data Lab results reviewed: Yes I reviewed the patient's lab results. Labs: 11/24/21 11:55 Urine - Reflex from Ua Urine Culture - Pending Laboratory Tests Range/Units 11/24/21 11/24/21 11/24/21 10:43 10:43 10:43 WBC (4.4-10.8) 10^3/uL 8.47 RBC (3.93-5.22) 10^6/uL 4.85 Hgb (11.2-15.7) g/dL 15.9 H D Hct (36.0-46.0) % 52.0 H D MCV (80-95) fL 107.2 H MCH (27.0-33.0) pg 32.8 MCHC (32.0-36.0) % 30.6 L RDW (11.7-14.6) % 12.8 Plt Count (130-400) 10^3/uL 363 MPV (8.0-11.0) fL 8.9 Immature Gran % 0.5 Neutrophils % 85.3 Lymphocytes % 6.6 Monocytes % 7.2 Eosinophils % 0.2 Basophils % 0.2 Nucleated RBC % % 0 Absolute Neutrophils (1.2-6.7) 10^3/uL 7.22 H Absolute Lymphocytes (1.2-3.4) 10^3/uL 0.56 L Absolute Monocytes (0.1-0.8) 10^3/uL 0.61 Absolute Eosinophils (0.0-0.7) 10^3/uL 0.02 Absolute Basophils (0.0-0.2) 10^3/uL 0.02 Macrocytosis 2+ PT (9.3-11.0) sec 11.0 INR (0.9-1.1) 1.1 Sodium (136-145) mmol/L 150 H Potassium (3.5-5.1) mmol/L 5.2 H D Chloride (98-107) mmol/L 111 H Carbon Dioxide (21.0-32.0) mmol/L 33.3 H Anion Gap (3-11) mmol/L 5.7 BUN (7-18) mg/dL 33 H D Creatinine (0.55-1.02) mg/dL 0.4 L Estimated GFR/1.73 m2 (mL/min/1.73m2) >= 60.00 Glucose (74-106) mg/dL 122 H Calcium (8.5-10.1) mg/dL 9.4 Magnesium (1.8-2.4) mg/dL 2.3 Total Bilirubin (0.2-1.0) mg/dL 0.6 AST (15-37) U/L 29 ALT (14-59) U/L 18 Alkaline Phosphatase (46-116) U/L 85 Troponin I (<or=60) ng/L < 50 Total Protein (6.4-8.2) g/dL 7.7 Albumin (3.4-5.0) g/dL 2.9 L TSH (0.36-3.74) uIU/mL 0.24 L Free T4 (0.76-1.46) ng/dL 1.25 Urine Color (Yellow) Urine Clarity (Clear) Urine pH (5-8) Ur Specific Tarrs (1.005-1.025) Urine Protein (Negative) mg/dL Urine Ketones (Negative) mg/dL Urine Blood (Negative) Urine Nitrite (Negative) Urine Bilirubin (Negative) Urine Urobilinogen (Up TO 0.2) EU/dL Ur Leukocyte Esterase (Negative) Urine RBC (0-2) HPF Urine WBC (0-5) HPF Ur Epithelial Cells (Negative) HPF Urine Crystals (Negative) HPF Urine Bacteria (Negative) HPF Urine Casts (Negative) LPF Urine Mucus (Negative) Ur Culture Indicated? Urine Glucose (Negative) mg/dL Range/Units 11/24/21 11:55 WBC (4.4-10.8) 10^3/uL RBC (3.93-5.22) 10^6/uL Hgb (11.2-15.7) g/dL Hct (36.0-46.0) % MCV (80-95) fL MCH (27.0-33.0) pg MCHC (32.0-36.0) % RDW (11.7-14.6) % Plt Count (130-400) 10^3/uL MPV (8.0-11.0) fL Immature Gran % Neutrophils % Lymphocytes % Monocytes % Eosinophils % Basophils % Nucleated RBC % % Absolute Neutrophils (1.2-6.7) 10^3/uL Absolute Lymphocytes (1.2-3.4) 10^3/uL Absolute Monocytes (0.1-0.8) 10^3/uL Absolute Eosinophils (0.0-0.7) 10^3/uL Absolute Basophils (0.0-0.2) 10^3/uL Macrocytosis PT (9.3-11.0) sec INR (0.9-1.1) Sodium (136-145) mmol/L Potassium (3.5-5.1) mmol/L Chloride (98-107) mmol/L Carbon Dioxide (21.0-32.0) mmol/L Anion Gap (3-11) mmol/L BUN (7-18) mg/dL Creatinine (0.55-1.02) mg/dL Estimated GFR/1.73 m2 (mL/min/1.73m2) Glucose (74-106) mg/dL Calcium (8.5-10.1) mg/dL Magnesium (1.8-2.4) mg/dL Total Bilirubin (0.2-1.0) mg/dL AST (15-37) U/L ALT (14-59) U/L Alkaline Phosphatase (46-116) U/L Troponin I (<or=60) ng/L Total Protein (6.4-8.2) g/dL Albumin (3.4-5.0) g/dL TSH (0.36-3.74) uIU/mL Free T4 (0.76-1.46) ng/dL Urine Color (Yellow) Yellow Urine Clarity (Clear) Sl Cloudy Urine pH (5-8) 7.0 Ur Specific Tarrs (1.005-1.025) >= 1.030 H Urine Protein (Negative) mg/dL 100 H Urine Ketones (Negative) mg/dL 15 H Urine Blood (Negative) Trace-intact H Urine Nitrite (Negative) Positive H Urine Bilirubin (Negative) Negative Urine Urobilinogen (Up TO 0.2) EU/dL 0.2 Ur Leukocyte Esterase (Negative) Trace H Urine RBC (0-2) HPF 0-2 Urine WBC (0-5) HPF 3-5 Ur Epithelial Cells (Negative) HPF Few Urine Crystals (Negative) HPF Negative Urine Bacteria (Negative) HPF Many Urine Casts (Negative) LPF Negative Urine Mucus (Negative) Trace Ur Culture Indicated? Yes Urine Glucose (Negative) mg/dL Negative HPI General Mode of arrival: EMS . Date/Time Provider Initiated Documentation: 11/24/21 10:30 . Limitations to Documentation: altered mental status . Information obtained by: EMS and old records reviewed . 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 Apparently patient had a negative PCR Covid test on . On her sodium was noted to be 160, her sodium tabs were discontinued. Patient has also intermittently been taking her Risperdal but not consistently. She has not been eating or drinking for the past couple of days, combative, not cooperating with care. Apparently this morning she was walking around the facility with little to no clothes on, acting aggressively. They were able to give a 0.5 p.o. as needed Ativan. It would appear as though she is also recently discontinued taking her chronic Coumadin and has instead been placed on Eliquis. Spoke with Barbie, daughter, fell in Nov, see at [facility], decline since then. Treated for fall, hyponatremia, uti, and anaplasmosis. Lived independently up until that time. I am told that she is not typically on oxygen but at times if she breathes shallowly or is agitated then sometimes supplemental oxygen is required. Related Data Home Medications Medication Instructions Recorded Confirmed apixaban 2.5 mg tablet (Eliquis) 2.5 mg PO BID 11/24/21 11/24/21 ascorbic acid (vitamin C) 250 mg 1,000 mg PO BID 11/24/21 11/24/21 tablet cholecalciferol (vitamin D3) 25 50 mcg PO DAILY 11/24/21 11/24/21 mcg (1,000 unit) tablet lorazepam 0.5 mg tablet (Ativan) 0.5 mg PO Q4H 11/24/21 11/24/21 lorazepam 1 mg tablet (Ativan) 1 mg PO DAILY 11/24/21 11/24/21 melatonin 3 mg tablet 3 mg PO HS 11/24/21 11/24/21 mirabegron 50 mg tablet,extended 50 mg PO DAILY 11/24/21 11/24/21 release 24 hr nicotine 7 mg/24 hr daily 1 patch TRANSDERMAL DAILY 11/24/21 11/24/21 transdermal patch potassium chloride 20 mEq 20 meq PO DAILY 11/24/21 11/24/21 tablet,extended release sennosides 8.6 mg tablet (senna) 17 mg PO DAILY 11/24/21 11/24/21 sodium chloride 1,000 mg soluble 1,000 mg PO BID 11/24/21 11/24/21 tablet Allergies Allergy/AdvReac Type Severity Reaction Status Date / Time diazepam [From Valium] Allergy Unverified 11/24/21 11:06 meperidine Allergy Unverified 11/24/21 11:06 morphine Allergy Unverified 11/24/21 11:06 Penicillins Allergy Unverified 11/24/21 11:06 Proton Pump Inhibitors Allergy Unverified 11/24/21 11:06 sulfamethoxazole Allergy Unverified 11/24/21 11:06 [From Bactrim] trimethoprim [From Bactrim] Allergy Unverified 11/24/21 11:06 General Stated Complaint: AMS/LOC JULIO CESAR: 2 Review of Systems Unobtainable due to mental status PFSH All Active Problems (Updated 11/24/21 @ 13:46 by BRENDAN Laureano) Hypernatremia (Acute) Agitation (Acute) Social History Smoking/Tobacco Use Status: Never Smoking risk assessment performed?: Yes Alcohol Intake: current Alcohol Intake frequency: 0-2 drinks per day Alcohol type: wine Drug use: Never Substance use type: does not use Exam Const General: comfortable, no acute distress, combative and frail appearing Orientation: alert, awake, oriented to person, oriented to place and confused (To time and date) HENCT Head: normal to inspection, normocephalic and atraumatic Face and sinus: normal facial exam Mouth: moist mucous membranes abnormal (Dry) Throat: posterior oropharynx normal Eyes General: appearance normal, both eyes and all related structures Conjunctivae: conjunctivae normal Neck Neck: normal visual inspection, full ROM, no meningeal signs, trachea midline, supple and nontender Resp Effort & Inspection: normal respiratory effort, able to speak in complete sentences and tachypneic (When agitated.) Auscultation: diminished lung sounds bilaterally in the lower lung be Cardio Rate: regular rate Rhythm: regular rhythm GI Inspection: normal to inspection Palpation: soft, not firm, no guarding, no pulsatile masses and nontender Back/Spine/Pelvis Back: No back tenderness Skin Rashes: no rashes Neuro General: patient alert, patient awake, moves all extremities and no focal motor deficits Speech: speech normal Sensory Exam: no sensory deficits noted Extrem General: normal to inspection, full ROM and capillary refill normal Psych Appearance: grossly normal Mental Status: mental status grossly normal Course Vital Signs Vital signs: Vital Signs Temperature 36.7 C 11/24/21 10:21 Pulse 64 11/24/21 10:21 Respiratory Rate 16 11/24/21 10:21 Blood Pressure 139/75 11/24/21 10:21 Pulse Oximetry 89 L 11/24/21 10:21 Temperature 36.7 C 11/24/21 10:21 Temperature Source Skin 11/24/21 10:21 Pulse 64 11/24/21 10:21 Respiratory Rate 16 11/24/21 10:21 Respiratory Effort 11/24/21 10:33 Blood Pressure 139/75 11/24/21 10:21 Blood Pressure Position Supine 11/24/21 10:21 Pulse Oximetry 86 L 11/24/21 10:48 Oxygen Delivery Method Nasal Cannula 11/24/21 10:48 Oxygen Flow Rate 3 11/24/21 10:48 PAWSS Have you Been Recently Intoxicated or Drunk Within the Last 30 days?: No Have you Ever Experienced Previous Episodes of Alcohol Withdrawal?: No Have you ever Experienced Withdrawal Seizures?: No Have you ever Experienced Delirium Tremens(DT)s?: No Have you ever undergone Alcohol Rehabilitation Treatment (i.e, inpt ot outpatient treatment programs)?: No Have you ever Experienced Blackouts?: No Have you ever Combined Alcohol with other Downers within the last 90 days?: No Have you ever Combined Alcohol with any other Substance of Abuse during the last 90 days?: No Positive Blood Alcohol level on Presentation? [PCS.BAL]: No Evidence of Increased Autonomic Activity (i.e. HR>120, tremor, sweating, agitation, nausea)?: No Result: 0
[2021-11-24 10:50] LABS: Abs Immature Grans 0.04 10^3/uL (0.0-0.06); Absolute Basophil Count 0.02 10^3/uL (0.0-0.2); Absolute Eosinophil Count 0.02 10^3/uL (0.0-0.7); Absolute Lymphocyte Count 0.56 10^3/uL (1.2-3.4); Absolute Monocyte Count 0.61 10^3/uL (0.1-0.8); Absolute Neutrophil Count 7.22 10^3/uL (1.2-6.7); Basophils % 0.2; Eosinophils % 0.2; HGB 15.9 g/dL (11.2-15.7); Immature Grans % 0.5; Lymphocytes % 6.6; MCH 32.8 pg (27.0-33.0); MCHC 30.6 % (32.0-36.0); MCV 107.2 fL (80-95); MPV 8.9 fL (8.0-11.0); Monocytes % 7.2; Neutrophils % 85.3; Nucleated RBC 0 %; Platelet Count 363 10^3/uL (130-400); RBC 4.85 10^6/uL (3.93-5.22); RDW 12.8 % (11.7-14.6); RDW-SD 51.7 fL; WBC 8.47 10^3/uL (4.4-10.8)
[2021-11-24 11:04] LABS: INR 1.1 (0.9-1.1)
[2021-11-24 11:15] LABS: ALT 18 U/L (14-59); AST 29 U/L (15-37); Albumin 2.9 g/dL (3.4-5.0); Alkaline Phosphatase 85 U/L (46-116); Anion Gap 5.7 mmol/L (3-11); BUN 33 mg/dL (7-18); Bilirubin, Total 0.6 mg/dL (0.2-1.0); CO2 33.3 mmol/L (21.0-32.0); CREATININE 0.4 mg/dL (0.55-1.02); Calcium 9.4 mg/dL (8.5-10.1); Chloride 111 mmol/L (98-107); Glucose 122 mg/dL (74-106); Magnesium 2.3 mg/dL (1.8-2.4); Potassium 5.2 mmol/L (3.5-5.1); Sodium 150 mmol/L (136-145); TSH (W/Ref FT4) 0.24 uIU/mL (0.36-3.74); Total Protein 7.7 g/dL (6.4-8.2); Troponin I < 50 ng/L (<or=60)
[2021-11-24 11:21] LABS: Diff Comment RBC Morph Reviewed; Macrocytosis 2+
[2021-11-24] MEDS: LORazepam 2 MG/ML VIAL 1 MG IVP (11:32)
[2021-11-24 11:36] LABS: FREE T4 1.25 ng/dL (0.76-1.46)
[2021-11-24] MEDS: Normal Saline 500 ML IV (11:49)
[2021-11-24 12:04] LABS: Bilirubin Negative (Negative); Blood Trace-intact (Negative); Clarity Sl Cloudy (Clear); Glucose Negative (Negative); Ketones 15 mg/dL (Negative); Leukocyte Esterase Trace (Negative); Nitrite Positive (Negative); Specific Gravity >= 1.030 (1.005-1.025); Urobilinogen 0.2 EU/dL (Up TO 0.2)
[2021-11-24 12:11] LABS: Bacteria Many HPF (Negative); C & S Indicated? Yes; Casts Negative LPF (Negative); Crystals Negative HPF (Negative); Epithelial Cells Few HPF (Negative); Mucus Trace (Negative); RBC 0-2 HPF (0-2)
--- NOTE | 2021-11-24 12:50 | DI.VRAD_ITS ---
PROCEDURE INFORMATION: Exam: XR Chest Exam date and time: 11/24/2021 12:21 PM Age: 81 years old Clinical indication: Other: AMS; Additional info: Patient unable to follow directions or remain still TECHNIQUE: Imaging protocol: XR of the chest. Views: 1 view. COMPARISON: No relevant images were readily available for comparison purposes. FINDINGS: Lungs: Linear like opacity right lung base likely atelectasis. No convincing consolidation. Pleural spaces: No pneumothorax. No sizable pleural effusion. Heart/Mediastinum: The cardiac silhouette appears enlarged. Suspected hiatal hernia. Bones/joints: Osteopenia. No acute displaced fracture. Other findings: Patient rotation limits evaluation. IMPRESSION: Cardiac silhouette enlargement and likely right basilar atelectasis without other definite acute cardiopulmonary findings on this exam limited by patient rotation. Dictated and Authenticated by: Oscar Kraft MD. Ordering:ALCON Kraft MD
--- NOTE | 2021-11-24 12:57 | DI.VRAD_ITS ---
PROCEDURE INFORMATION: Exam: CT Head Without Contrast Exam date and time: 11/24/2021 12:21 PM Age: 81 years old Clinical indication: Alteration of consciousness; Other: AMS; Additional info: Patient unable to follow directions or remain still TECHNIQUE: Imaging protocol: Computed tomography of the head without contrast. COMPARISON: No relevant images were readily available for comparison purposes. FINDINGS: Brain: Moderate cerebral volume loss. Moderate burden nonspecific white matter disease likely related to chronic microvascular risk factors. No convincing evidence of an acute infarct. No acute intracranial hemorrhage. Cerebral ventricles: Ventricular expansion likely related to cerebral volume loss. Paranasal sinuses: Clear Mastoid air cells: There is near complete opacification of the right mastoid air cells as well as fluid within the right middle ear. Left mastoid air cells clear. Orbital cavities: Bilateral lens extractions. Vasculature: Vascular calcifications. Bones/joints: No acute skull fracture. Soft tissues: Unremarkable superficial soft tissues IMPRESSION: 1. No acute intracranial findings. 2. Near complete opacification of the right mastoid air cells and fluid within the right middle ear concerning for infectious process. Please correlate for infectious signs/symptoms. Dictated and Authenticated by: Oscar Kraft MD. Ordering:ALCON Kraft MD
== END 2021-11-24 13:59 | disposition skilled nursing facility (03) ==
PROVIDERS: Emergency Provider Physician Assistant
DX: E87.0 Hyperosmolality and hypernatremia (principal); R45.1 Restlessness and agitation; R41.82 Altered mental status, unspecified; Z79.01 Long term (current) use of anticoagulants
CPT/HCPCS: 36415; 51701; 80053; 96361; 96374; 99284; 70450; 71045; 81003; 81015; 83735; 84439; 84443; 84484; 85025; 85610; 87086; J2060